=== PATIENT | female | born 1975 | race Caucasian/White ===

== ENCOUNTER → 2021-12-18 13:53 | Outpatient (CLI) | payer OTHER, SELFPAY ==
--- NOTE | ~2021-12-18 | US_ITS ---
EXAMINATION: US pelvic complete w TV DATE: 12/18/2021 14:28 INDICATION: Abnormal uterine bleeding. TECHNIQUE: Multiple transabdominal and transvaginal sonographic images of the pelvis were obtained. COMPARISON: None. FINDINGS: TRANSABDOMINAL ULTRASOUND: The uterus measures 7.4 x 3.5 x 3.1 cm. There is no free fluid in the pelvis. TRANSVAGINAL ULTRASOUND: The endometrial complex measures 6 mm in thickness. There is an intrauterine device in expected posit ion. The right ovary measures 3.7 x 3.2 x 5.0 cm. There is a 4.1 cm cyst with peripheral low level ec hoes and septation in right ovary, consistent with a hemorrhagic cyst. The left ovary is not visualiz ed. IMPRESSION: 1. Intrauterine device in expected position. 2. 4.1 cm hemorrhagic cyst in right ovary. Reviewed, dictated and finalized at location E. KLE STRAP SEWER
== END ==
PROVIDERS: PCP Family Medicine; Visit Provider Obstetrics & Gynecology
DX: N93.9 Abnormal uterine and vaginal bleeding, unspecified (principal); Z97.5 Presence of (intrauterine) contraceptive device; N83.201 Unspecified ovarian cyst, right side
CPT/HCPCS: 76830; 76856

== ENCOUNTER → 2022-01-16 11:13 | Outpatient (CLI) | payer OTHER, SELFPAY ==
--- NOTE | ~2022-01-16 | US_ITS ---
EXAMINATION: US pelvic complete w TV DATE: 01/16/2022 11:35 INDICATION: Unspecified ovarian cyst follow-up TECHNIQUE: Multiple transabdominal and endovaginal sonographic images of the pelvis were obtained. COMPARISON: 12/18/2021 FINDINGS: The uterus measures 7.5 x 3.1 x 4.3 cm. An IUD is present in expected position. The endomet rial complex measures 5 mm. The left ovary is not visualized however no left adnexal abnormality is s een. The right ovary measures 4.9 x 3.2 x 4.2 cm. There is a 3.9 x 3.1 cm cyst with thin internal sep tation and occasional low-level internal echoes which has decreased in size. There is normal vascular flow in the right ovary. There is no free fluid in the pelvis. IMPRESSION: 1. Hemorrhagic cyst of the right ovary with decrease in size. Reviewed, dictated and finalized at location B. WARE SALES ASSISTANT
== END ==
PROVIDERS: Visit Provider Obstetrics & Gynecology
DX: N83.201 Unspecified ovarian cyst, right side (principal)
CPT/HCPCS: 76830; 76856

== ENCOUNTER 2022-06-07 09:54 | Outpatient (CLI) | payer OTHER, SELFPAY ==
--- NOTE | 2022-06-07 10:00 | ECG_ITS ---
Measurements Intervals [place] Rate: 81 P: 31 AL: 149 QRS: 79 QRSD: 90 T: 27 QT: 348 QTc: 404 Interpretive Statements SINUS RHYTHM BASELINE ARTIFACT- I, II, III, AVR, AVL, AVF, V1-V6 NORMAL ECG Electronically Signed On 06-07-2022 10:54:17 CDT by Anuj Cabezas D.O.
== END 2022-06-07 09:55 | disposition home or self-care (01) ==
LOC: ANHSURGERY 09:58
PROVIDERS: PCP Family Medicine; Visit Provider Obstetrics & Gynecology
DX: Z01.818 Encounter for other preprocedural examination (principal); N93.9 Abnormal uterine and vaginal bleeding, unspecified
CPT/HCPCS: 36415; 86850; 86900; 86901; 93005

== ENCOUNTER 2022-06-13 00:20 | Day surgery (SDC) | payer OTHER, SELFPAY ==
[2022-06-05 14:17] VITALS: BMI 33.6
--- NOTE | 2022-06-05 14:28 | PC.NURSE ---
Report to the Outpatient Waiting Room, entrance under the green pavilion located off [facility], at time 6:30 on date 06/13/22. OR Time: 8:30. - You and your visitor will be asked a series of questions to screen for COVID 19 for your protection. - Only one visitor is allowed at this time. - The patient visitor is requested to leave or wait in car when not with patient. - A mask is required within the hospital. Patients may have clear liquids (water, carbonated beverages, clear teas, apple juice) until 3 hours prior to surgery (5:30) with a maximum of 20 ounces. - No food from midnight until time of surgery Take the following medications with a SIP of water the morning of surgery: XANAX (IF NEEDED), BUPROPION, VENLAFAXINE Medications to discontinue per physician: VITAMINS/SUPPLEMENTS Date to take last dose: 06/09/22 Please no make-up, nail bhutanese, hairspray, perfume, deodorant, or body powder the day of surgery. No jewelry (including any body piercings) or valuables the day of surgery, leave them at home. Please take a shower or bath the night before, or the morning of, surgery with an antibacterial soap. Wear comfortable, loose fitting clothing. - Jewelry must be removed prior to entering the operating room. Rings and piercings that are not removed may be cut off. - The hospital will not accept responsibility for valuables. - Please leave all valuables, including medications, at home the day of surgery. If you are going home after surgery, a licensed driver/sales workers must drive you home. - NO public transportation without another adult. - We recommend that an adult stay with you for 24 hours following discharge. - We also recommend that you do not drive, make important decision, drink alcoholic beverages, or take any drugs that were not prescribed by your health care provider for at least 24 hours after your discharge time. Follow any additional instructions given to you from your surgeon. If you or anyone in your household have experienced Covid symptoms in the past week, please notify your surgeon or the nurse liaison at the phone number below for possible testing. Telephone instructions given to PT - NASRIN SANZ and asked if any additional questions and then verbalized understanding. Patient advised to call surgeon office or pre surgery nurse liaison [phone] if any additional questions.
--- NOTE | 2022-06-12 15:38 | PM.IMHP ---
H&P: HPI History of Present Illness Date/Time: 06/12/22 15:38 Chief Complaint: Abnormal bleeding Narrative: She is here for planned robotic assisted laparoscopic hysterectomy with bilateral salpingooophorectomy for abnormal uterine bleeding. She has had irregular bleeding, endometrial biopsy did not suggest malignancy or polyp. She does currently use Paragard for control. She has been given option of removal of IUD and salpingectomy. She also had an ovarian cyst which was followed and was decreasing on last ultrasound. She does not want any other option for control. She is not hormonal candidate. She has been offered endometrial ablation and sterilization. She does not want any possibility of abnormal bleeding returning. She desires definitive treatment of the abnormal bleeding. She has satisfied parity. She desires hysterectomy and removal of ovaries and fallopian tubes. Review of Systems Review of Systems: All systems reviewed & are unremarkable except as noted in HPI and below Constitutional: Constitutional: Reports as per HPI and Reports no additional constitutional complaints Eyes: Eyes: Reports no additional eye complaints Cardiovascular: Cardiovascular: Reports no additional cardiovascular complaints Respiratory: Respiratory: Reports no additional respiratory complaints Gastrointestinal: Gastrointestinal: Reports no additional gastrointestinal complaints Genitourinary: Genitourinary: Reports no additional female genitourinary complaints and Reports as per HPI Integumentary/Breasts: Skin/Breast: Reports system reviewed and no additional complaints, except as docu Neurologic: Reports system reviewed and no additional complaints, except as documented Psychiatric: Psychiatric: Reports no additional psychiatric complaints Hematologic/Lymphatic: Hematologic/Lymphatic: Reports no additional hematologic/lymphatic complaints PMFSH Past Medical History Medical History Breast cancer Vaginal delivery Surgical History Surgical History H/O LEEP Previous section Status post partial mastectomy of left breast Status post partial mastectomy of right breast Family History Family History Mother Hypertension Family history of diabetes mellitus in first degree relative Father Family history of elevated blood lipids Grandparent Family history of coronary artery disease Other Family history of malignant neoplasm of breast Social History Social History Smoking status: Never smoker Second hand tobacco smoke exposure: No Alcohol intake: current Drinks per week: 1 Alcohol use details: rare Substance use: never Substance use type: does not use Living arrangements: with family Additional occupation/education comments: house Gender identity (if verbalized by the patient): Female Spiritual care concerns: No Meds Home Medications and Allergies Home Medications Medication Instructions Recorded Confirmed Type multivitamin 1 tablet PO DAILY 11/13/19 06/10/22 History copper 380 square mm intrauterine 1 device intrauterine ONCE 12/14/19 06/10/22 History device (ParaGard T 380A) anastrozole 1 mg tablet 1 mg PO DAILY #30 tabs 12/21/20 06/10/22 Rx alprazolam 0.5 mg tablet 0.5 mg PO TID PRN anxiety #12 tabs 12/06/21 06/10/22 Rx losartan 25 mg tablet 12.5 mg PO DAILY #90 tabs 12/06/21 06/10/22 Rx vitamins B1 B6 B12 tablet 1 tablet PO DAILY 12/26/21 06/10/22 History bupropion HCl 300 mg 24 hr tablet, 300 mg PO QAM #90 tabs 04/10/22 06/10/22 Rx extended release venlafaxine 75 mg capsule,extended 75 mg PO DAILY #90 caps 05/15/22 06/10/22 Rx release 24 hr venlafaxine 37.5 mg 37.5 mg PO DAILY #90 caps 05/22/22 06/10/22 Rx capsule,extended release
[2022-06-13] VITALS (11 sets, daily range): BP systolic 102–154; BP diastolic 60–96; PULSE 75–92; RESP 16–22; TEMP 36.1–36.7; O2SAT 96–100
[2022-06-13] MEDS: LACTATED RINGERS 1,000 ML 30 ML IV CONT ×3 (06:37→10:28)
[2022-06-13] MEDS: KETOROLAC 15 MG/ML VIAL (*BKC) IV PUSH (06:39)
[2022-06-13] MEDS: ACETAMINOPHEN 500 MG TABLET 1000 MG PO (06:39)
[2022-06-13] MEDS: SCOPOLAMINE 1.5 MG PATCH TRANSDERM (06:40)
--- NOTE | 2022-06-13 06:58 | WPDANESEPPF ---
Anes - Initial Pre Proc Eval Procedure: Operation Date: 06/13/22 07:30 Proposed Procedures p Robotic Total Hysterectomy with Bilateral Salpingo-Oophorectomy - Ousmane Middleton MD Date/Time: 06/13/22 06:58 Surgeon: Ousmane Middleton MD Pre Op Diagnosis: Abn Uterine Bleeding,Ovarian Cyst,Inflamm Uterus Patient Data Age: 46 Gender: F Height: 1.7 m Weight: 97.52 kg Allergies Allergy/AdvReac Type Severity Reaction Status Date / Time No Known Allergies Allergy Verified 06/05/22 14:14 Home Medications Medication Instructions Recorded Confirmed Type multivitamin 1 tablet PO DAILY 11/13/19 06/10/22 History copper 380 square mm intrauterine 1 device intrauterine ONCE 12/14/19 06/10/22 History device (ParaGard T 380A) anastrozole 1 mg tablet 1 mg PO DAILY #30 tabs 12/21/20 06/10/22 Rx alprazolam 0.5 mg tablet 0.5 mg PO TID PRN anxiety #12 tabs 12/06/21 06/10/22 Rx losartan 25 mg tablet 12.5 mg PO DAILY #90 tabs 12/06/21 06/10/22 Rx vitamins B1 B6 B12 tablet 1 tablet PO DAILY 12/26/21 06/10/22 History bupropion HCl 300 mg 24 hr tablet, 300 mg PO QAM #90 tabs 04/10/22 06/10/22 Rx extended release venlafaxine 75 mg capsule,extended 75 mg PO DAILY #90 caps 05/15/22 06/10/22 Rx release 24 hr venlafaxine 37.5 mg 37.5 mg PO DAILY #90 caps 05/22/22 06/10/22 Rx capsule,extended release 24 hr (Effexor XR) semaglutide 0.25 mg or 0.5 mg (2 0.25 mg (0.2 mL) subcut WEEKLY 05/24/22 06/10/22 Rx mg/1.5 mL) subcutaneous pen #1.5 mL injector (Ozempic) calcium carbonate 600 mg-vitamin 1 tablet PO DAILY 06/05/22 06/05/22 History D3 5 mcg (200 unit) tablet Patient hx anesthesia problems: none Family hx anesthesia problems: none Results Review: All pre-operative results and documents have been reviewed as part of the pre-operative evaluation. PMFSH Past Medical History Medical History Breast cancer Vaginal delivery Surgical History Surgical History H/O LEEP Previous section Status post partial mastectomy of left breast Status post partial mastectomy of right breast Family History Family History Mother Hypertension Family history of diabetes mellitus in first degree relative Father Family history of elevated blood lipids Grandparent Family history of coronary artery disease Other Family history of malignant neoplasm of breast Social History Social History Smoking status: Never smoker Second hand tobacco smoke exposure: No Alcohol intake: current Drinks per week: 1 Alcohol use details: rare Substance use: never Substance use type: does not use Living arrangements: with family Additional occupation/education comments: house Gender identity (if verbalized by the patient): Female Spiritual care concerns: No Anes - Eval Final PreProcedure Day of Procedure 06/13/22 06:58 Patient weight: obese Heart: regular rate and rhythm Lungs: clear to auscultation Airway: Mallampati scale class II Neurological: alert and oriented Last oral intake: >/= 8 hours ASA classification: III Emergent: no Anesthetic plan: proceed Anesthesia type and monitoring: general ETT and standard monitoring Results Review: All pre-operative results and documents have been reviewed as part of the pre-operative evaluation. Informed Consent: The patient's anesthetic plan and its attendant risks and benefits were discussed with the patient/family/POA. Questions were solicited and answers provided to the satisfaction of the patient/family/POA.
--- NOTE | 2022-06-13 07:25 | WPDHPUPDATE1 ---
History and Physical Update Update Date/Time: 06/13/22 07:25 History and Physical has been reviewed, including an updated exam of the patient. There are NO changes in the patient's condition. Risks, benefits, and alternatives have been discussed and questions answered. Patient agrees to proceed with procedure.
[2022-06-13] MEDS: ceFAZolin 2 GM/D5W 50 ML 2 GM/50 ML BAG IVPB (07:28)
[2022-06-13] MEDS: BUPIVACAINE HCL 0.5% PF 30 ML VIAL INFILTRATE (08:12)
--- NOTE | 2022-06-13 09:54 | W.PM.PROC2 ---
Procedure Note - Detailed Date of Procedure 06/13/22 Pre-op Diagnosis Abn Uterine Bleeding,Ovarian Cyst Post-op Diagnosis Same Procedure Performed robotic assisted laparoscopic hysterectomy with bilateral salpingo-oophrectomy, lysis of adhesions, IUD removal Surgeon Ousmane Middleton MD Etcher Apprentice Photoengraving Rayn Anesthesia General Indications Abnormal uterine bleeding, ovarian cyst Findings Normal size uterus, approx 3 cm right ovarian cyst with clear fluid on incision of cyst Description of Procedure After informed consent was obtained she was taken to the operating room and general endotracheal anesthesia was administered. ? She was placed in low lithotomy position. An exam under anesthesia was performed. She was and prepped and draped in sterile fashion.? Jeffers catheter placed in bladder. Attention was turned to the vagina speculum was inserted.? Single-tooth tenaculum placed on anterior lip of the cervix the uterus sounded to 7 cm. The Paragard IUD was removed with Ej. It was intact.? The cervix was dilated to a 8 Wilkinson dilator.? A size 6 uterine manipulator was inserted and balloon inflated. Attention was turned to the abdomen with new sterile gloves. .25% marcaine injected subcutaneously. An incision was made horizontal 2 cm above the umbilicus.? A veress needle was inserted into abdomen confirmation obtained with normal peritoneal pressures. ? A Pneumoperitoneum of 15 mm per mercury was obtained. The? robotic port was inserted under laparoscopic visualization. A small incision was made approximately 8 cm lateral to the port on the left side of the port. A size 8mm? robotic port was inserted under laparoscopic visualization into the abdomen on the? left side.? Attention was turned to? the right side of abdomen and a robotic port inserted under laparoscopic visualization. An medical billing assistant port was inserted superior and medial to this. She was placed in trendelenberg position. Robotic arms attached. Instruments attached. Attention was turned to surgical consul. Large band of adhesion of omental tissue that was scarred to anterior abdomen was lysed with the vessel sealer. The right round ligament was ligated with vessel sealer instrument. The anterior leaf of the broad ligament was dissected anteriorly. The vesicoperitoneum was dissected from the lower uterus. The right side of the bladder was dissected from the lower uterine segment and upper cervix.? The right infundibular pelvic ligament was ligated with the vessel sealer. The a posterior leaf of the broad ligament was further dissected. ? The ascending uterine vessels on the right were ligated.? ? The uterine vessels were ligated.? Attention was turned to the left? round ligament which? was ligated and the anterior leaf of the broad ligament was dissected anteriorly. The rest of the vesicouterine peritoneum was dissected off of the uterus.?Scar tissue from the bladder to lower uterus was dissected. Once the bladder was dissected below the colp cup then attention was turned to left infundibulopelvic ligament which was ligated with vessel sealer. The ascending uterine vessels were ligated with the vessel sealer. ? The bladder was further dissected to below the level where the colp cup was palpated.?The uterine arteries were ligated. ? The cardinal ligaments were ligated.? This was done on both sides. ? ? An incision was made anterior colpotomy incision was made and this was carried around until the cervix was removed from the vagina.? The uterus and cervix?and both ovaries and fallopian tubes were removed through the vagina.? The vaginal cuff was closed in a running fashion with 0 V lock suture.?Both ureters were visualized peristalsing. Hemostasis was noted.? The pelvis was irrigated.? Hemoderm was applied in the cuff site.? The patient was taken out of Trendelenburg position.? The pneumoperitoneum was released and the ports were removed.? The skin incisions were closed with 4 O Vicryl and skin glue.? The patient was extubated
--- NOTE | 2022-06-13 10:44 | SUR.PHASEI ---
1036- oral airway removed
--- NOTE | 2022-06-13 12:00 | PC.NURSE ---
Pt arrived on unit via bed accompanied by family and taken to room 280. PT awake and alert and oriented to room and surroundings. PT introductions made and plan of care discussed per post op nuts and bolts assembler surgery, pain management, daily care activities and pending discharge to home. PT and family both recipients of such instructions and no barriers to learning identified at this time. PT received such instructions this shift via one to one discussion and demonstrations. PT verbalized understanding of such care.
[2022-06-13] MEDS: SIMETHICONE 80 MG TAB.CHEW PO (13:30)
[2022-06-13] MEDS: HYDROcodone/acetaminophen (*CRX) 5-325 MG TABLET 1 TAB PO ×2 (13:30→18:22)
[2022-06-13] MEDS: IBUPROFEN 600 MG TABLET PO (13:30)
== END 2022-06-13 18:40 | disposition home or self-care (01) ==
LOC: ANHSURGERY 06:07 → ANHOB2 11:55
PROVIDERS: PCP Family Medicine; Visit Provider Obstetrics & Gynecology
PROC: (CPT 58301; principal; 2022-06-13 07:30)
DX: N93.9 Abnormal uterine and vaginal bleeding, unspecified (principal); N83.201 Unspecified ovarian cyst, right side; Z30.432 Encounter for removal of intrauterine contraceptive device; N83.8 Other noninflammatory disorders of ovary, fallopian tube and broad ligament; N73.6 Female pelvic peritoneal adhesions (postinfective); Z85.3 Personal history of malignant neoplasm of breast; Z79.811 Long term (current) use of aromatase inhibitors; E66.9 Obesity, unspecified; Z68.34 Body mass index [BMI] 34.0-34.9, adult
CPT/HCPCS: 58301; 58571; S2900; 36415; 86850; 86900; 86901; 88307; 93005; 99199; A9270; J0690; J1100; J1170; J1885; J2250; J2405; J2704; J2710; J7030; J7120

== ENCOUNTER 2022-11-27 01:22 | Day surgery (SDC) | payer OTHER, SELFPAY ==
[2022-11-21 08:59] VITALS: BMI 33.3
[2022-11-27 11:49] VITALS: BP 125/88; PULSE 97; RESP 18; TEMP 36.4; O2SAT 98
[2022-11-27] MEDS: LACTATED RINGERS 1,000 ML 150 ML IV CONT (11:59)
--- NOTE | 2022-11-27 12:29 | WPDANESEPPF ---
Anes - Initial Pre Proc Eval Procedure: Operation Date: 11/27/22 13:30 Proposed Procedures p Colonoscopy - Cornelio Stephens MD Date/Time: 11/27/22 12:29 Surgeon: Cornelio Stephens MD Pre Op Diagnosis: constipation, abdominal pain Patient Data Age: 47 Gender: F Height: 1.69 m Weight: 94.8 kg Last Vital Signs Temp 97.6 F 11/27/22 11:49 Pulse 97 11/27/22 11:49 Resp 18 11/27/22 11:49 BP 125/88 11/27/22 11:49 Pulse Ox 98 11/27/22 11:49 O2 Del Method Room Air 11/27/22 11:49 Allergies Allergy/AdvReac Type Severity Reaction Status Date / Time No Known Allergies Allergy Verified 11/27/22 11:46 Home Medications Medication Instructions Recorded Confirmed Type multivitamin 1 tablet PO DAILY 11/13/19 11/21/22 History anastrozole 1 mg tablet 1 mg PO DAILY #30 tabs 12/21/20 11/21/22 Rx losartan 25 mg tablet 12.5 mg PO DAILY #90 tabs 12/06/21 11/21/22 Rx calcium carbonate 600 mg-vitamin 1 tablet PO DAILY 06/05/22 11/21/22 History D3 5 mcg (200 unit) tablet bupropion HCl 300 mg 24 hr tablet, 300 mg PO QAM #90 tabs 06/25/22 11/21/22 Rx extended release venlafaxine 37.5 mg 37.5 mg PO DAILY #90 caps 08/16/22 11/21/22 Rx capsule,extended release 24 hr (Effexor XR) venlafaxine 75 mg capsule,extended 75 mg PO DAILY #90 caps 08/16/22 11/21/22 Rx release 24 hr alprazolam 0.5 mg tablet 0.5 mg PO TID PRN anxiety #12 tabs 10/09/22 11/21/22 Rx semaglutide 2 mg/dose (8 mg/3 mL) 2 mg (0.75 mL) subcut WEEKLY 90 11/06/22 11/21/22 Rx subcutaneous pen injector (Ozempic) days #9.75 mL cyanocobalamin (vitamin B-12) 500 500 mcg PO DAILY 11/21/22 11/21/22 History mcg tablet (Vitamin B-12) Patient hx anesthesia problems: none Family hx anesthesia problems: none Results Review: All pre-operative results and documents have been reviewed as part of the pre-operative evaluation. [facility] Past Medical History Medical History Breast cancer Vaginal delivery Surgical History Surgical History H/O bilateral salpingo-oophorectomy H/O LEEP History of robot-assisted laparoscopic hysterectomy Lysis Adhesions Previous section Status post partial mastectomy of left breast Status post partial mastectomy of right breast Family History Family History Mother Hypertension Family history of diabetes mellitus in first degree relative Father Family history of elevated blood lipids Grandparent Family history of coronary artery disease Other Family history of malignant neoplasm of breast Social History Social History Smoking status: Never smoker Second hand tobacco smoke exposure: No Alcohol intake: current Drinks per week: 1 Alcohol use details: rare Substance use: never Substance use type: does not use Living arrangements: with family Additional occupation/education comments: house Gender identity (if verbalized by the patient): Female Spiritual care concerns: No Anes - Eval Final PreProcedure Day of Procedure 11/27/22 12:29 Patient weight: obese Heart: regular rate and rhythm Lungs: clear to auscultation Airway: Mallampati scale class II Neurological: alert and oriented Last oral intake: >/= 8 hours ASA classification: III Emergent: no Anesthetic plan: proceed Anesthesia type and monitoring: general GIVS and standard monitoring Results Review: All pre-operative results and documents have been reviewed as part of the pre-operative evaluation. Informed Consent: The patient's anesthetic plan and its attendant risks and benefits were discussed with the patient/family/POA. Questions were solicited and answers provided to the satisfaction of the patient/family/POA.
--- NOTE | 2022-11-27 13:04 | PM.HPGS ---
History of Present Illness History of Present Illness Consent: Risks, benefits, and alternatives have been discussed and questions answered. Patient agrees to proceed with procedure. Chief complaint: constipation, abdominal pain Narrative: Elana Vee is a 47 year old female here for first screening colonoscopy, also intermittent lower cramping even after her hysterectomy Review of Systems Constitutional: Constitutional: Denies headache(s) and Denies weakness Eyes: Eyes: Denies blurry vision ENT: Reports Normal hearing present, Denies headache(s) and Denies neck pain Cardiovascular: Cardiovascular: Denies chest pain and Denies dyspnea Respiratory: Respiratory: Denies dyspnea Gastrointestinal: Gastrointestinal: Reports no additional gastrointestinal complaints Genitourinary: Genitourinary: Denies dysuria Musculoskeletal: Musculoskeletal: Denies neck pain Integumentary/Breasts: Skin/Breast: Denies dry skin Neurologic: Reports Normal hearing present, Denies headache(s) and Denies weakness Psychiatric: Psychiatric: Denies anxiety Endocrine: Endocrine: Denies change in body appearance Hematologic/Lymphatic: Hematologic/Lymphatic: Denies easy bleeding Allergic/Immunologic: Allergic/Immunologic: Denies urticaria PMF Past Medical History Medical History (Updated 11/27/22 @ 13:05 by Cornelio Stephens MD) Breast cancer Colon cancer screening Vaginal delivery Surgical History Surgical History H/O bilateral salpingo-oophorectomy H/O LEEP History of robot-assisted laparoscopic hysterectomy Lysis Adhesions Previous section Status post partial mastectomy of left breast Status post partial mastectomy of right breast Family History Family History Mother Hypertension Family history of diabetes mellitus in first degree relative Father Family history of elevated blood lipids Grandparent Family history of coronary artery disease Other Family history of malignant neoplasm of breast Social History Social History Smoking status: Never smoker Second hand tobacco smoke exposure: No Alcohol intake: current Drinks per week: 1 Alcohol use details: rare Substance use: never Substance use type: does not use Living arrangements: with family Additional occupation/education comments: house Gender identity (if verbalized by the patient): Female Spiritual care concerns: No Meds Home Medications and Allergies Home Medications Medication Instructions Recorded Confirmed Type multivitamin 1 tablet PO DAILY 11/13/19 11/21/22 History anastrozole 1 mg tablet 1 mg PO DAILY #30 tabs 12/21/20 11/21/22 Rx losartan 25 mg tablet 12.5 mg PO DAILY #90 tabs 12/06/21 11/21/22 Rx calcium carbonate 600 mg-vitamin 1 tablet PO DAILY 06/05/22 11/21/22 History D3 5 mcg (200 unit) tablet bupropion HCl 300 mg 24 hr tablet, 300 mg PO QAM #90 tabs 06/25/22 11/21/22 Rx extended release venlafaxine 37.5 mg 37.5 mg PO DAILY #90 caps 08/16/22 11/21/22 Rx capsule,extended release 24 hr (Effexor XR) venlafaxine 75 mg capsule,extended 75 mg PO DAILY #90 caps 08/16/22 11/21/22 Rx release 24 hr alprazolam 0.5 mg tablet 0.5 mg PO TID PRN anxiety #12 tabs 10/09/22 11/21/22 Rx semaglutide 2 mg/dose (8 mg/3 mL) 2 mg (0.75 mL) subcut WEEKLY 90 11/06/22 11/21/22 Rx subcutaneous pen injector (Ozempic) days #9.75 mL cyanocobalamin (vitamin B-12) 500 500 mcg PO DAILY 11/21/22 11/21/22 History mcg tablet (Vitamin B-12) Allergies Allergy/AdvReac Type Severity Reaction Status Date / Time No Known Allergies Allergy Verified 11/27/22 11:46 Vital Signs Vital Signs - 24 hr 11/27/22 11:49 Temperature 97.6 F Pulse Rate 97 Respiratory Rate 18 Blood Pressure 125/88 Pulse Oximetry 98 Oxygen Deliv
[2022-11-27 13:20] VITALS: BP 113/78; PULSE 96; RESP 23; O2SAT 98
[2022-11-27 13:30] VITALS: BP 108/74; PULSE 89; RESP 20; O2SAT 98
[2022-11-27 13:35] VITALS: BP 126/78; PULSE 83; RESP 20; O2SAT 99
== END 2022-11-27 13:50 | disposition home or self-care (01) ==
PROVIDERS: PCP Family Medicine; Visit Provider Internal Medicine Gastroenterology
PROC: 0DJD8ZZ Inspection of Lower Intestinal Tract, Via Natural or Artificial Opening Endoscopic (ICD-10-PCS; CPT 45378; principal; 2022-11-27 13:30)
DX: Z12.11 Encounter for screening for malignant neoplasm of colon (principal); K64.8 Other hemorrhoids; Z79.811 Long term (current) use of aromatase inhibitors; Z85.3 Personal history of malignant neoplasm of breast; Z79.899 Other long term (current) drug therapy; E66.9 Obesity, unspecified; Z68.33 Body mass index [BMI] 33.0-33.9, adult; Z90.710 Acquired absence of both cervix and uterus
CPT/HCPCS: 45378; J2704; J7120

== ENCOUNTER 2024-08-13 11:44 | Emergency (ER) | payer OTHER, SELFPAY ==
--- NOTE | ~2024-08-13 | CT_ITS ---
Non-contrast Head CT History: Paresthesias Technique: Axial non-contrast imaging of the brain was performed. Dose reduction technique was used on this scan by utilizing automated exposure control and iterative reconstruction technique. The dose -length product (DLP) was 681.00 mGy-cm. Findings: There is no evidence of intracranial hemorrhage, mass lesion, or acute infarct. Brain par enchyma appears normal. The ventricles and subarachnoid spaces are normal in size. The calvarium ap pears normal. The visualized paranasal sinuses and mastoid air cells are clear. Impression: No significant abnormality seen. Reviewed, dictated and finalized at location . Impression: No significant abnormality seen.
[2024-08-13 11:57] VITALS: BP 168/104; PULSE 89; RESP 16; TEMP 36.1; O2SAT 96
[2024-08-13 13:12] VITALS: BP 142/94; PULSE 87; RESP 18; TEMP 36.5; O2SAT 98
[2024-08-13 13:16] VITALS: O2SAT 98
--- NOTE | 2024-08-13 14:11 | ED.NEUROSD ---
HPI - Neuro Symptoms/Deficit General Chief Complaint: Neuro Symptoms/Deficit Stated Complaint: numbness to right arm Time Seen by Provider: 08/13/24 13:28 History of Present Illness HPI Narrative: 48-year-old female with history of hypertension, anxiety, breast cancer in remission presenting with paresthesias. Patient states that she hurt her right shoulder a couple of days ago. She has had a lot of muscle tightness in her right upper back and right shoulder. States that the tightness feels like it has improved but she is now having tingling and decreased sensation in the back of her right arm, her right shoulder, into her right jaw. No weakness, vision or speech changes. No neck pain. No further complaints. Related Data Home Medications Medication Instructions Recorded Confirmed multivitamin 1 tablet PO DAILY 11/13/19 05/04/24 calcium 600 mg (as 1 tablet PO DAILY 06/05/22 05/04/24 carbonate)-vitamin D3 5 mcg (200 unit) tablet cyanocobalamin (vitamin B-12) 500 500 mcg PO DAILY 11/21/22 05/04/24 mcg tablet (Vitamin B-12) Allergies Allergy/AdvReac Type Severity Reaction Status Date / Time No Known Allergies Allergy Verified 08/13/24 12:04 Review of Systems Review of Systems: All systems reviewed & are unremarkable except as noted in HPI and below PMFSH Past Medical History Medical History Breast cancer Colon cancer screening Vaginal delivery Surgical History Surgical History H/O bilateral salpingo-oophorectomy H/O LEEP History of robot-assisted laparoscopic hysterectomy Lysis Adhesions Previous section Status post partial mastectomy of left breast Status post partial mastectomy of right breast Family History Family History Mother Hypertension Family history of diabetes mellitus in first degree relative Father Family history of elevated blood lipids Grandparent Family history of coronary artery disease Other Family history of malignant neoplasm of breast Social History Social History Smoking status: Never smoker Second hand tobacco smoke exposure: No Alcohol intake: current Drinks per week: 1 Alcohol use details: VERY RARE Substance use: never Substance use type: does not use Living arrangements: with family Occupation/Education: other Additional occupation/education comments: house Gender identity (if verbalized by the patient): Female Spiritual care concerns: No Exam Narrative: GENERAL: Well-appearing, in no acute distress, pleasant cooperative HEAD: Normocephalic, atraumatic. EYES: PERRLA and EOMI. ENT: Mucous membranes moist. NECK: Supple. CHEST: No respiratory distress. HEART: Regular rate and rhythm. Normal peripheral pulses. EXTREMITIES: Normal range of motion SKIN: Warm, dry, no rash. NEURO: Alert and oriented x3. subjective decreased sensation medial upper right arm into R shoulder and slightly into R lower face; 5/5 strength in all extremities, no pronator drift, [id number] intact, no facial droop, no dysarthria or aphasia PSYCH: Normal mood and affect. Course Vital Signs Vital signs: Vital Signs Temperature 97 F L 08/13/24 11:57 Pulse Rate 89 08/13/24 11:57 Respiratory Rate 16 08/13/24 11:57 Blood Pressure 168/104 H 08/13/24 11:57 Pulse Oximetry 96 08/13/24 11:57 Oxygen Delivery Room Air 08/13/24 11:57 Temperature 98.2 F 08/13/24 16:25 Pulse Rate 78 08/13/24 16:25 Respiratory Rate 15 08/13/24 16:25 Blood Pressure 163/93 H 08/13/24 16:25 Pulse Oximetry 96 08/13/24 16:25 Oxygen Delivery Room Air 08/13/24 11:57 MDM - Neuro Symptoms/Deficit MDM Narrative Medical decision making narrative: 48-year-old female presenting wit
[2024-08-13 14:35] LABS: Basophils Absolute Auto 0.1 K/mm3 (0.0-0.1); Basophils Percent Auto 0.7 % (0.2-1.2); Eosinophils Absolute Auto 0.1 K/mm3 (0-0.3); Hematocrit 44.9 % (37.0-47.0); Hemoglobin 15.9 g/dL (12.0-15.0); Immature Granulocyte Absolute 0.02 K/mm3 (0.00-0.031); Immature Granulocyte Percent A 0.2 % (0-0.5); Lymphocytes Absolute Auto 1.95 K/mm3 (0.9-3.2); Lymphocytes Percent Auto 16.8 % (18.3-44.2); Mean Corpuscular HGB Conc 35.4 g/dl (32-36); Mean Corpuscular Hemoglobin 29.2 pg (26-34); Mean Corpuscular Volume 82.5 fl (80-100); Mean Platelet Volume 9.9 fl (7.4-10.4); Monocytes Absolute Auto 0.4 K/mm3 (0.1-0.6); Neutrophils Absolute Auto 9.1 K/mm3 (1.3-6.7); Neutrophils Percent Auto 78.3 % (45.5-73.1); Platelet Count Result 331 k/mm3 (150-375); Red Blood Count 5.44 M/mm3 (4.2-5.4); Red Cell Distribution Width 13.9 % (11.5-14.5); White Blood Count 11.6 K/mm3 (4.5-10.0)
[2024-08-13 14:49] LABS: Anion Gap 9 mmol/L (4-12); Blood Urea Nitrogen 13 mg/dL (7-17); Calcium 9.7 mg/dL (8.4-10.2); Carbon Dioxide 24 mmol/L (22-30); Chloride 106 mmol/L (98-107); Estimated CRCL calculation 107 ml/min; Estimated Glomerular Filt Rate > 60; Glucose 113 mg/dL (65-110); Potassium 4.1 mmol/L (3.4-5.0); Sodium 139 mmol/L (137-145)
[2024-08-13] MEDS: CYCLOBENZAPRINE HCL 10 MG TABLET PO (14:57)
[2024-08-13] MEDS: SODIUM CHLORIDE 0.9% IV 1,000 ML 999 ML IV CONT (14:59)
[2024-08-13 15:01] VITALS: BP 160/93; PULSE 86; RESP 16; O2SAT 96
[2024-08-13 16:25] VITALS: BP 163/93; PULSE 78; RESP 15; TEMP 36.8; O2SAT 96
[2024-08-13 17:00] VITALS: BP 163/93; PULSE 77; RESP 16; TEMP 36.6; O2SAT 99
== END 2024-08-13 17:36 | disposition home or self-care (01) ==
PROVIDERS: Emergency Provider Emergency Medicine; PCP Family Medicine
DX: R20.2 Paresthesia of skin (principal); M62.838 Other muscle spasm; I10 Essential (primary) hypertension; Z85.3 Personal history of malignant neoplasm of breast; Z90.79 Acquired absence of other genital organ(s); Z90.722 Acquired absence of ovaries, bilateral; Z90.710 Acquired absence of both cervix and uterus; Z90.13 Acquired absence of bilateral breasts and nipples
CPT/HCPCS: 36415; 70450; 80048; 85025; 96360; 99284; A9270; J7030